=== PATIENT | female | born 1975 | race Caucasian/White ===

== ENCOUNTER → 2020-11-13 | Outpatient (CLI) | payer OTHER ==
--- NOTE | 2020-11-13 16:10 | US ---
EXAMINATION TYPE: US pelvic complete DATE OF EXAM: 11/13/2020 COMPARISON: NONE CLINICAL HISTORY: 45-year-old female R10.2 pelvic pain. Right pelvic pain, IUD placement TECHNIQUE: Transabdominal (TA). Date of LMP: 11/07/20 FINDINGS: EXAM MEASUREMENTS: Uterus: 10.7 x 4.4 x 5.1 cm Endometrial Stripe: 0.5 cm Right Ovary: 2.5 x 2.1 x 2.1 cm Left Ovary: 2.7 x 1.4 x 1.4 cm 1. Uterus: Anteverted. 2. Endometrium: IUD visualized centered at the body/fundus 3. Right Ovary: dominant follicle = 1.9 x 1.4 x 1.9cm 4. Left Ovary: Normal follicular change. 5. Bilateral Adnexa: appears wnl 6. Posterior cul-de-sac: wnl IMPRESSION: 1. IUD appropriately situated within the uterine cavity. 2. Normal physiologic changes in the ovaries. 3. No pelvic free fluid.
== END ==
LOC: RADUSWWP 14:27
PROVIDERS: ATTEND Obstetrics & Gynecology
DX: R10.2 Pelvic and perineal pain (principal); Z97.5 Presence of (intrauterine) contraceptive device
CPT/HCPCS: 76856